=== PATIENT | male | born 1955 | race Caucasian/White ===

== ENCOUNTER 2022-10-28 06:45 | Day surgery (SDC) | payer MEDICARE ==
[~2022-10-28] VITALS: Ht 180.3 cm; Wt 85.0 kg
[~2022-10-28 06:45] MED LIST: ALLOPURINOL100 MG PO; HYDROCHLOROTH12.5 M1 PO; INDAPAMIDE1.25 MG PO; PEPCID40 MG PO; PROSCAR5 MG PO; ZESTRIL40 MG PO
--- NOTE | 2022-10-28 09:42 | NUR ---
10/28/22 0942 Tona Rodney 0924 PT ARRIVED IN PACU SLEEPY. ABD SOFT. 0940 RESTING. REU.
--- NOTE | 2022-10-28 10:25 | NUR ---
PT ALERT, ORIENTED AND SUPPORTED BY HIS KAM. PT IS HERE FOR HIS FIRST SCOPE-SEEMED TO TOLERATE PREP APPROPRIATELY. ALL QUESTIONS ASKED ANSWERED. KAM WILL REMAIN FOR DC. PT DECLINED PRAYER, GAVE BLESSING, WILL FOLLOW
--- NOTE | 2022-10-28 11:37 | OR ---
[facility] [address], [place] [address] Signed DATE OF OPERATION: 10/28/2022 SURGEON: Angel Garay MD PREOPERATIVE DIAGNOSES: 1. Initial screening colonoscopy. 2. Father with ulcerative colitis in his late 30s. POSTOPERATIVE DIAGNOSES: 1. 4 mm polyp at 15 cm in rectum. 2. 7 mm sessile polyp at 55 cm in the left colon. 3. 7 mm sessile polyp and 4 mm sessile polyp at 90 cm. 4. 4 mm polyp in proximal right colon. 5. 4 mm polyp at hepatic flexure. 6. 4 mm polyp at 40 cm in the left colon. 7. 3 mm polyp at 20 cm in sigmoid colon. 8. Minimal internal hemorrhoids. 9. Minimal sigmoid diverticulosis. PROCEDURE: Colonoscopy with hot biopsy. ESTIMATED BLOOD LOSS: None. INDICATIONS: Galina is a 67-year-old gentleman, asked to see me for his initial colonoscopy. He spoke of a negative FIT test in 2015. He has no lower GI complaints. No family history of colon cancer or polyps. Although, he is quite certain his father had ulcerative colitis in his late 30s, requiring a total abdominal colectomy with a colostomy. His dad is actually still alive all these years later. I helped Galina with upper endoscopy back in 2020, consequently, he is somewhat familiar with endoscopy. In the office, I gave him a pamphlet on colonoscopy and we looked at that together. There is risk including, but not limited to gas bloating, crampy abdominal pain, bleeding, perforation requiring surgery, and missed diagnosis. We also reviewed the need for IV conscious sedation. He had expressed understanding and wished to proceed. PROCEDURE NOTE: Galina was taken into our endoscopy suite and placed in the left lateral decubitus position. He was given a total of 125 mcg of fentanyl and 7 mg of Versed to cover the Electronically Signed By: ANGEL GARAY MD 10/28/22 1137 PATIENT NAME: GALINA VARGAS OPERATIVE REPORT DATE OF : 51 REPORT #: [id number] PHYSICIAN: ANGEL GARAY MD PCP: FER ABDI MD REPORT IS CONFIDENTIAL AND NOT TO BE RELEASED WITHOUT AUTHORIZATION [facility] [address], [place] [address] Signed case. A digital rectal exam was performed. There were no external hemorrhoids. He has good sphincter tone. His prostate is moderately indurated and enlarged. The adult colonoscope was introduced and advanced under direct visualization of the camera. We had to use some abdominal compression and additional sedation to get the camera around into the cecum itself. His prep was quite good. The scope was then slowly withdrawn. The above-mentioned polyps were easily removed with the help of hot biopsy forceps. We did see a few diverticula in the sigmoid colon. They were quite small, few in number, and scattered about. Down in the rectum, the scope had been retroflexed, and he has minimal internal hemorrhoid tissue. After this, the gas was suctioned out and the colonoscope removed. Galina tolerated the procedure quite well. RECOMMENDATIONS: I will see Galina back in my office in 7 to 14 days to review his results. Angel Garay MD ALB/MODL /[id number] cc: MD Fer Aguilar MD Copies: ANGEL GARAY MD, MALCOLM MD ~ Electronically Signed By: ANGEL GARAY MD 10/28/22 1137 PATIENT NAME: GALINA VARGAS OPERATIVE REPORT DATE OF : 51 REPORT #: [id number] PHYSICIAN: ANGEL GARAY MD PCP: FER ABDI MD REPORT IS CONFIDENTIAL AND NOT TO BE RELEASED WITHOUT AUTHORIZATION
--- NOTE | 2022-10-30 16:01 | PATH ---
[facility] [address] [facility] [place], [place] [address] Signed SPECIMEN(S): A RECTAL POLYPS AT 15CM SPECIMEN(S): B DESCENDING COLON POLYPS AT 55CM SPECIMEN(S): C COLON POLYP AT 90CM SPECIMEN(S): D PROX ASCENDING/RIGHT COLON POLYP SPECIMEN(S): E HEPATIC FLEXURE POLYP SPECIMEN(S): F DESCENDING COLON POLYP AT 40CM SPECIMEN(S): G SIGMOID POLYPS AT 20CM SPECIMEN SOURCE: A. RECTAL POLYPS AT 15CM B. DESCENDING COLON POLYPS AT 55CM C. COLON POLYP AT 90CM D. PROX ASCENDING/RIGHT COLON POLYP E. HEPATIC FLEXURE POLYP F. DESCENDING COLON POLYP AT 40CM G. SIGMOID POLYPS AT 20CM CLINICAL HISTORY: Initial screening. Postop: Diverticulosis, polyps FINAL PATHOLOGIC DIAGNOSIS: A. Rectum polyp at 15 cm, polypectomy: - Fragments of hyperplastic polyp. B. Descending colon polyp at 55 cm, polypectomy: - Fragments of tubular adenoma. - Negative for high-grade dysplasia and malignancy. C. Colon polyp at 90 cm, polypectomy: - Hyperplastic polyp. D. Proximal ascending/right colon polyp, polypectomy: - Sessile serrated lesion. - Negative for high-grade dysplasia and malignancy. E. Hepatic flexure polyp, polypectomy: - Tubular adenoma. - Negative for high-grade dysplasia and malignancy. F. Descending colon polyp at 40 cm, polypectomy: - Hyperplastic polyp. G. Sigmoid polyps at 20 cm, polypectomy: - Fragments of hyperplastic polyp. DF:cml:[id number] MICROSCOPIC EXAMINATION: PATIENT NAME: GALINA VARGAS PATHOLOGY DATE OF : 51 REPORT #: [id number] PHYSICIAN: STERLING AUSTIN PCP: FANI ABDI MD REPORT IS CONFIDENTIAL AND NOT TO BE RELEASED WITHOUT AUTHORIZATION [address] [address] Signed Histologic sections of all submitted blocks are examined by light microscopy. These findings, together with the gross examination, support the pathologic diagnosis. GROSS DESCRIPTION: A. The specimen, labeled and designated "Debbie Vargas," and designated on the requisition "rectum polyp at 15 cm," is received in formalin and consists of two chatterjee soft tissue fragments that measure 0.3 and 0.4 cm in greatest dimension. The specimen is entirely submitted in (A1). B. The specimen, labeled and designated "Debbie Vargas," and designated on the requisition "descending colon polyp at 55 cm," is received in formalin and consists of three chatterjee soft tissue fragments that measure 0.2 to 0.4 cm in greatest dimension. The specimen is entirely submitted in (B1). C. The specimen, labeled and designated "Debbie Vargas," and designated on the requisition "colon polyp at 90 cm," is received in formalin and consists of one chatterjee soft tissue fragment that is 0.4 cm in greatest dimension. The specimen is entirely submitted in (C1). D. The specimen, labeled and designated "Debbie Vargas," and designated on the requisition "proximal ascending/right colon polyp," is received in formalin and consists of one chatterjee soft tissue fragment that is 0.9 cm in greatest dimension. The specimen is inked, sectioned, and entirely submitted in (D1). E. The specimen, labeled and designated "Debbie Vargas," and designated on the requisition "hepatic flexure polyp," is received in formalin and consists of one chatterjee soft tissue fragment that is 0.4 cm in greatest dimension. The specimen is entirely submitted in (E1). F. The specimen, labeled and designated "Debbie Vargas," and designated on the requisition "descending colon polyp at 40 cm," is received in formalin and consists of one chatterjee soft tissue fragment that is 0.4 cm in greatest dimension. The specimen is entirely submitted in (F1). G. The specimen, labeled and designated "Debbie Vargas," and designated on the requisition "sigmoid colon polyp at 20 cm," is received in formalin and consists of two chatterjee soft tissue fragments that measure 0.3 and 0.4 cm in greatest dimension. The specimen is entirely submitted in (G1). FB (under the direct supervision of a pathologist) The Gross Description was prepared using a voice recognition system. The report was reviewed for accuracy; however, sound-alike word errors, addition and/or PATIENT NAME: GALINA VARGAS PATHOLOGY DATE OF : 51 REPORT #: [id number] PHYSICIAN: STERLING AUSTIN PCP: FANI ABDI MD REPORT IS CONFIDENTIAL AND NOT TO BE RELEASED WITHOUT AUTHORIZATION [facility] [address] [place] [id number] Signed deletions may occur. If there is any question about this report, please contact Client Services. PERFORMING LABORATORY: The technical component was performed by [facility], [address] [place] [address] (CLIA# [id number]). Professional interpretation was performed by [facility], [facility], [address] [place] [id number] (CLIA#: [id number]) Diagnostician: Shay Yeh DO Pathologist Electronically Signed 10/30/2022 Copies: ~ PATIENT NAME: GALINA VARGAS PATHOLOGY DATE OF : 51 REPORT #: [id number] PHYSICIAN: STERLING AUSTIN PCP: FANI ABDI MD REPORT IS CONFIDENTIAL AND NOT TO BE RELEASED WITHOUT AUTHORIZATION
== END 2022-10-28 10:20 | disposition home or self-care (01) ==
LOC: DS 06:45 → OPS 06:45 → DS 08:15 → OPS 08:15
PROVIDERS: ATTEND Colon & Rectal Surgery
PROC: 0DBL8ZX Excision of Transverse Colon, Via Natural or Artificial Opening Endoscopic, Diagnostic (ICD-10-PCS; 2022-10-28)
PROC: 0DBN8ZX Excision of Sigmoid Colon, Via Natural or Artificial Opening Endoscopic, Diagnostic (ICD-10-PCS; 2022-10-28)
PROC: 0DBP8ZX Excision of Rectum, Via Natural or Artificial Opening Endoscopic, Diagnostic (ICD-10-PCS; 2022-10-28)
PROC: 0DBM8ZX Excision of Descending Colon, Via Natural or Artificial Opening Endoscopic, Diagnostic (ICD-10-PCS; 2022-10-28)
PROC: 0DBK8ZX Excision of Ascending Colon, Via Natural or Artificial Opening Endoscopic, Diagnostic (ICD-10-PCS; principal; 2022-10-28 08:15)
DX: Z12.11 Encounter for screening for malignant neoplasm of colon (principal); D12.4 Benign neoplasm of descending colon; D12.3 Benign neoplasm of transverse colon; K64.8 Other hemorrhoids; K57.30 Diverticulosis of large intestine without perforation or abscess without bleeding; I12.9 Hypertensive chronic kidney disease with stage 1 through stage 4 chronic kidney disease, or unspecified chronic kidney disease; N18.30 Chronic kidney disease, stage 3 unspecified; G47.33 Obstructive sleep apnea (adult) (pediatric); K21.9 Gastro-esophageal reflux disease without esophagitis; F17.210 Nicotine dependence, cigarettes, uncomplicated; F10.90 Alcohol use, unspecified, uncomplicated; Z79.899 Other long term (current) drug therapy; Z88.8 Allergy status to other drugs, medicaments and biological substances
CPT/HCPCS: 99153; G0500; J2250; J3010; J7121